=== PATIENT | female | born 1965 | race Caucasian/White ===

== ENCOUNTER 2017-01-05 20:43 | Emergency (ER) | payer OTHER ==
[2017-01-05 21:03] VITALS: BP 123/72; PULSE 92; TEMP 98; BMI 26.4
--- NOTE | 2017-01-05 22:07 | PDOC ---
History of Present Illness - General Chief Complaint: Ear Problem Stated Complaint: EAR PROBLEM Time Seen by Provider: 01/05/17 21:47 - History of Present Illness Initial Comments: 01/05/17 22:03 CHIEF COMPLAINT: ear problem HISTORY OF PRESENT ILLNESS: 51 yo F presents to [facility] with discomfort and "noise in my ear" x 4 days. Patient states she has been taking amoxicillin for 1 week for a dental infection but she believes she has an ear infection now. She denies any dizziness, nausea, loss of consciousness, headache, weakness, change in vision. She denies taking any other medications. No recent travel or sick contacts. PAST MEDICAL HISTORY: Denies past medical history FAMILY HISTORY: Denies SOCIAL HISTORY: Denies tobacco, alcohol, illicit drug use. SURGICAL HISTORY: Denies ALLERGIES: No known drug allergies REVIEW OF SYSTEMS General/Constitutional: Denies fever or chills. Denies weakness. HEENT: "I have this sound in my ear, like water." Cardiovascular: Denies chest pain or shortness of breath. Respiratory: Denies cough, wheezing. Gastrointestinal: Denies nausea, vomiting, diarrhea. Musculoskeletal: Denies joint or muscle swelling or pain. Denies neck or back pain. Skin and breasts: Denies rash or easy bruising. Neurological: Denies dizziness, headache, weakness, change in vision, loss of sensation PHYSICAL EXAM General Appearance: Well-appearing, appropriately dressed. No apparent distress. HEENT: Cerumen impaction to right ear. EOMI, PERRLA. No conjunctival pallor. No photophobia, scleral icterus. Respiratory/Chest: Lungs CTAB. Cardiovascular: RRR. S1, S2. Musculoskeletal/Extremities: Normal inspection. FROM of all extremities, normal capillary refill. Pelvis Stable. No CVA tenderness. No tenderness to extremities, pedal edema, swelling, erythema or deformity. Integumentary: Appropriate color, dry, warm. No cyanosis, erythema, jaundice or rash Neurologic: principal process engineer II-XII intact. Fully oriented, alert. Appropriate mood/affect. Motor strength 5/5. No appreciable EOM palsy, facial droop or sensory deficit. Past History - Past Medical History Allergies/Adverse Reactions: Allergies Allergy/AdvReac Type Severity Reaction Status Date / Time No Known Allergies Allergy Verified 01/05/17 21:03 Home Medications: Ambulatory Orders Amoxicillin - [Amoxicillin 500mg Capsule -] 500 mg PO TID 01/05/17 COPD: No Other medical history: denies - Surgical History Cholecystectomy: Yes - Suicide/Smoking/Psychosocial Hx Smoking History: Never smoked Have you smoked in the past 12 months: No Hx Alcohol Use: No Drug/Substance Use Hx: No Substance Use Type: None *Physical Exam - Vital Signs Last Vital Signs Temp Pulse Resp BP Pulse Ox 98 F 92 H 18 123/72 98 01/05/17 21:00 01/05/17 21:00 01/05/17 21:00 01/05/17 21:00 01/05/17 21:00 Medical Decision Making - Medical Decision Making 01/05/17 22:06 51 yo F presents to [facility] with discomfort and "noise in my ear" x 4 days. Ear lavage, cerumen removal from right ear. 01/05/17 22:08 Patient continues to complain of "a sound in my ear". Advised patient to f/u with ENT and of signs and symptoms for return to ER. *DC/Admit/Observation/Transfer Diagnosis at time of Disposition: Tinnitus of right ear - Discharge Dispostion Disposition: HOME Condition at time of disposition: Stable Admit: No - Referrals Referrals: Guido Danielle MD [Staff Physician] - - Patient Instructions Printed Discharge Instructions: DI for Tinnitus Additional Instructions: Please follow up with the ENT (ear, nose, and throat) doctor as discussed. If you develop any dizziness, weakness, difficulty speaking of swallowing, change in vision, loss of memory, or any new or worsening symptoms, please return to the ER. Por favor, vance un seguimiento con el otorrinolaringlogo (odo, nariz y garganta) miranda se discuti. Si presenta mareos, debilidad, dificultad para deglutir, cambios en la visin, prdida de memoria o cualquier sntoma nuevo o que empeora, vuelva a la bert de emergencias. Print Language: TURKMEN - Post Discharge Activity
== END 2017-01-05 22:19 | disposition home or self-care (01) ==
LOC: JERFT 20:43
PROC: 3E1B78Z Irrigation of Ear using Irrigating Substance, Via Natural or Artificial Opening (ICD-10-PCS; principal; 2017-01-05)
DX: H93.11 Tinnitus, right ear (principal); H61.21 Impacted cerumen, right ear
CPT/HCPCS: 69209; 99281-25

== ENCOUNTER 2023-07-29 04:30 | Day surgery (SDC) | payer OTHER ==
[2023-07-28 12:20] VITALS: BMI 32.2
[2023-07-29 11:43] VITALS: TEMP 97.5
[2023-07-29 12:20] VITALS: BP 119/54; PULSE 62; RESP 16
== END 2023-07-29 12:44 | disposition home or self-care (01) ==
LOC: JASU-ENDO 04:30
PROVIDERS: ATTEND Internal Medicine Gastroenterology
PROC: 0DJD8ZZ Inspection of Lower Intestinal Tract, Via Natural or Artificial Opening Endoscopic (ICD-10-PCS; principal; 2023-07-29 09:00)
DX: Z12.11 Encounter for screening for malignant neoplasm of colon (principal); K57.30 Diverticulosis of large intestine without perforation or abscess without bleeding